=== PATIENT | female | born 1975 | race Two or more races ===

== ENCOUNTER 2018-12-15 12:24 | Day surgery (SDC) | payer OTHER ==
[~2018-12-15] VITALS: Ht 162.6 cm; Wt 60.8 kg
[2018-12-15 13:21] VITALS: Ht 162.6 cm; Wt 60.8 kg
[2018-12-15] MEDS ORDERED: NEXIUM (13:24)
[2018-12-15 13:32] VITALS: BP 105/63; PULSE 86; RESP 20
[2018-12-15] MEDS ORDERED: LIDOCAINE 4% SOLUTION 50 ML BTL ONE (13:32)
[2018-12-15] MEDS ORDERED: MIDAZOLAM 1 MG/ML 2 ML INJ ONE ×2 (14:05)
[2018-12-15] MEDS ORDERED: FENTAnyl 50 MCG/ML VIAL ONE (14:06)
[2018-12-15 14:23] VITALS: BP 96/55; RESP 18
== END 2018-12-15 14:56 | disposition home or self-care (01) ==
LOC: GIL 12:24
PROVIDERS: ATTEND Internal Medicine
DX: T18.128A Food in esophagus causing other injury, initial encounter (principal); X58.XXXA Exposure to other specified factors, initial encounter; K22.0 Achalasia of cardia
CPT/HCPCS: 43235; J2250; J3010; Z7610